=== PATIENT | male | born 1985 | race Caucasian/White ===

== ENCOUNTER 2017-09-08 06:25 | Inpatient (IN) | payer OTHER ==
[~2017-09-08] VITALS: Ht 188 cm; Wt 128.6 kg
[2017-09-08] MEDS ORDERED: KETOROLAC 15 MG INJ IV STA (06:49)
[2017-09-08] MEDS ORDERED: SOD CHLORIDE 0.9% 1,000 ML IV STA (06:49)
--- NOTE | 2017-09-08 06:52 | ERD ---
ER Documentation Chief Complaint Chief Complaint sob,cough,pain when coughing HPI 32-year-old man presents with cough, congestion, sore throat, and anterior chest wall pain 3 days. Pain is worse with coughing, he is also had some congestion and sore throat. He admits to using methamphetamine for the last few days including today. He denies fevers or chills, no calf or leg swelling, no vomiting or diarrhea, no headache or blurry vision. Patient denies exertional discomfort. ROS All systems reviewed and are negative except as per history of present illness. Medications Home Meds No Active Prescriptions or Reported Meds Allergies Allergies: Coded Allergies: No Known Drug Allergy (Verified Allergy, Mild, 09/08/17) PMhx/Soc Methamphetamine abuse History of Surgery: Yes (hip, gall bladder) Anesthesia Reaction: No Hx Neurological Disorder: No Hx Respiratory Disorders: No Hx Cardiac Disorders: No Hx Psychiatric Problems: No Hx Miscellaneous Medical Probl: No Hx Alcohol Use: Yes (ocassional) Hx Substance Use: Yes (mj) Hx Tobacco Use: Yes (10 STICKS PER DAY) FmHx Family History: No diabetes Physical Exam Vitals Vital Signs Date Time Temp Pulse Resp B/P Pulse Ox O2 Delivery O2 Flow Rate FiO2 09/08/17 09:38 2.0 09/08/17 09:38 80 18 95 Nasal Cannula 2.0 09/08/17 09:36 99.1 109 27 113/70 Nasal Cannula 2.0 09/08/17 08:00 102.1 09/08/17 07:10 Nasal Cannula 2 09/08/17 06:30 98.3 112 24 129/89 95 Physical Exam GENERAL: Well-developed, well-nourished, well-hydrated, in no apparent distress , looks nontoxic in appearance, afebrile HEENT: Moist mucous membranes, pink conjunctiva, no cervical spine tenderness or step-off deformities, no goiter, no jaundice or icterus, extraocular movements intact without pain. No submandibular induration, and no pharyngeal erythema NEURO: Alert and oriented 3, cranial nerves II through XII intact bilaterally, pupils equal round reactive to light, no focal deficits or facial asymmetry, sensation intact distally Strength 5/5 in upper and lower extremities bilaterally CARDIAC: Tachycardic and regular, no murmurs rubs or gallops LUNGS: Clear bilaterally no wheezing crackles or stridor ABDOMEN: Soft nontender, no guarding, no rigidity, no rebound, no psoas sign no obturator sign. Normoactive bowel sounds SKIN: Warm and dry to touch, no abrasions, contusions, or hematomas, no lacerations, no ecchymosis, no target lesions, and without ulcers EXTREMITIES: No clubbing cyanosis or edema, calves are bilaterally symmetrical, no Homans sign, no popliteal cord sign. Distal pulses equal and bilateral PSYCH: Normal affect without agitation or irritability Result Diagram: 09/08/17 0740 09/08/17 0740 Results 24 hrs Laboratory Tests Test 09/08/17 07:40 09/08/17 09:05 White Blood Count 27.810^3/ul Red Blood Count 4.3110^6/ul Hemoglobin 13.3g/dl Hematocrit 39.1% Mean Corpuscular Volume 90.7fl Mean Corpuscular Hemoglobin 30.9pg Mean Corpuscular Hemoglobin Concent 34.0g/dl Red Cell Distribution Width 12.6% Platelet Count 87172^3/UL Mean Platelet Volume 9.6fl Neutrophils % % Segmented Neutrophils % (Manual) 57% Band Neutrophils % (Manual) 33% Lymphocytes % % Lymphocytes % (Manual) 5% Monocytes % % Monocytes % (Manual) 3% Eosinophils % % Basophils % % Metamyelocytes % (manual) 2% Nucleated Red Blood Cells % 0.0/100WBC Neutrophils # 10^3/ul Neutrophils # (Manual) 18.410^3/ul Band Neutrophils # 9.110^3/ul Absolute Lymphocytes (Manual) 1.310^3/ul Lymphocytes # 10^3/ul Monocytes # 10^3/ul Absolute Monocytes (Manual) 0.810^3/ul Eosinophils # 10^3/ul Basophils # 10^3/ul Metamyelocytes # 0.510^3/ul Nucleated Red Blood Cells # 10^3/ul Pathologist Review (Hematology) Y Platelet Estimate NORMAL Sodium Level 141mmol/L Potassium Level 3.9mmol/L Chloride Level 104mmol/L Carbon Dioxide Level 27mmol/L Anion Gap 14 Blood Urea Nitrogen 15mg/dl Creatinine 0.80mg/dl Glucose Level 107mg/dl Calcium Level 9.1mg/dl Total Bilirubin 1.4mg/dl Direct Bilirubin 0.00mg/dl Indirect Bilirubin 1.4mg/dl Aspartate Amino Transf (AST/SGOT) 31IU/L Alanine Aminotransferase (ALT/SGPT) 38IU/L Alkaline Phosphatase 75IU/L Troponin I 0.034ng/ml Total Protein 7.1g/dl Albumin 3.4g/dl Globulin 3.70g/dl Albumin/Globulin Ratio 0.91 Lipase 39U/L Lactic Acid Level 1.3mmol/L B-Type Natriuretic Peptide 1560PG/ML Current Medications Medications (Trade) Dose Ordered Sig/Pieter Route PRN Reason Start Time Stop Time Status Last Admin Dose Admin Sodium Chloride (NS) 1,000 ml @ 1,000 mls/hr Q1H STAT IV 09/08/17 06:49 09/08/17 07:48 DC 09/08/17 07:53 Ketorolac Tromethamine (Toradol) 15 mg ONCE STAT IV 09/08/17 06:49 09/08/17 06:50 DC 09/08/17 07:54 Lorazepam 0.5 mg 0.5 mg ONCE ONCE PO 09/08/17 07:00 09/08/17 07:01 DC 09/08/17 07:54 Ceftriaxone Sodium 50 ml @ 100 mls/hr ONCE ONCE IVPB 09/08/17 08:00 09/08/17 08:29 DC 09/08/17 09:05 Azithromycin (Zithromax 500mg/ NS (Pmx)) 250 ml @ 250 mls/hr ONCE ONCE IVPB 09/08/17 08:00 09/08/17 08:59 DC 09/08/17 10:15 Sodium Chloride 3000 ml 3,000 ml BOLUS OVER 2 HOURS STAT IV* 09/08/17 09:27 09/08/17 09:30 DC 09/08/17 10:16 Vancomycin HCl (Vancocin) 250 ml @ 125 mls/hr ONCE ONCE IVPB 09/08/17 09:30 09/08/17 11:29 DC 09/08/17 11:40 Albuterol (Proventil 0.083% (Neb)) 10 mg ONCE STAT HHN 09/08/17 09:27 09/08/17 09:30 DC 09/08/17 09:38 Procedures/MDM IV line was established patient was placed on nurse monitoring rhythm strip revealed a sinus tachycardia at 120 bpm with upright P and T waves. Patient was afebrile EKG performed, read by me revealed a sinus tachycardia at 119 bpm, normal axis, narrow QRS complex, no concerning ST elevations or depressions noted. One view chest x-ray performed, read by me there is a right lower lobe infiltrate and congestion bilaterally with atelectasis, no pneumothorax, no air under the diaphragm. I administered 1 L normal saline intravenously, Toradol 15 mg IV for pain control, lorazepam 0.5 mg p.o. for methamphetamine intoxication and tachycardia , as well as ceftriaxone 1 g IV and azithromycin 500 mg IV for right-sided pneumonia. I also administered vancomycin 1 g IV. CBC reveals a leukocytosis at 28, electrolytes are normal, liver function tests normal, troponin negative. BNP elevated at 1560, lactic acid level low. I suspect patient has a component of cardiac decompensation secondary to methamphetamines Influenza AB swabs were negative. Patient's tachycardia resolved. I was later informed that the patient has a fever of 102F while here in the ED. Patient's initial temperature was normal at 98.3F. Given his x-ray findings, severe leukocytosis, 102F fever I suspect sepsis secondary to pneumonia. I ordered blood cultures and lactic acid level. I also ordered increased IV fluid hydration for a total of about 30 cc/kg. Patient's infectious symptoms have not stabilized and the patient is at risk of rapid decompensation. The patient will be admitted for careful hydration, antibiotic therapy, and infectious source control. I added vancomycin 1 g IV to the patient's antibiotics and also administered albuterol 10 mg via nebulizer. Patient defervesced Severe Sepsis Assessment: Infectious Source: Pneumonia Severe Sepsis Managment: Blood Cultures X 2 before broad spectrum antibiotics initiated within 3 hours of recognition. 30 ml/kg NS bolus Completed Initial Lactate: Normal Repeat Lactate not indicated as initial < 2.0 Critical Care: Time: 45 minutes Treatments/Evaluations: Emergent fluid management, while maintaining close respiratory support. Immediate broad spectrum antibiotic therapy. Simultaneous assessment for possible sources in order to direct therapy. Consideration for invasive and chemical support to prevent respiratory or cardiac collapse. Septic Shock Assessment (1 hour post 30 ml/kg fluid bolus): Hypotension (SBP < 90 or 40 mmHg drop, MAP < 65): No Lactic acid > 4.0 No Perfusion Reassessment for Septic Shock: Temp 99F, pulse 90 bpm, respiratory rate 18 breaths per minute, blood pressure 120/80 Heart Exam: Regular rate rhythm Lung Exam: Crackles on the right side Capillary Refill: Less than 2 seconds Peripheral Pulses: Radially present Skin: [place] and dry Hypotensive Treatment (not required for isolated lactic acid elevation): Comfort Care: No Central LIne: Not indicated Vasopressor started: Not indicated I considered further perfusion assessment with CVP measurement, SCVO2, bedside ultrasound volume assessment, passive leg raise, trial of further fluid bolus. And preceded with aggressive IV hydration, broad-spectrum IV antibiotics, and bronchodilator therapy Accepting Care Team: Current data and ongoing care discussed. Time: Time of admission Primary Provider: Hospitalist Consulting: Infectious disease Outstanding Data: none Departure Diagnosis: Primary Impression: Pneumonia Pneumonia type: due to unspecified organism Laterality: right Lung location : middle lobe of lung Qualified Code: J18.1 - Pneumonia of right middle lobe due to infectious organism Additional Impressions: Methamphetamine abuse Sepsis Sepsis type: sepsis due to unspecified organism Qualified Code: A41.9 - Sepsis, due to unspecified organism Heart failure Heart failure type: systolic Heart failure chronicity: acute Qualified Code : I50.21 - Acute systolic heart failure Condition: MICA Cain MD Sep 08, 2017 06:52
[2017-09-08] MEDS ORDERED: LORAZEPAM 0.5 MG TAB PO ONE (07:00)
--- NOTE | 2017-09-08 07:37 | RADRPT ---
PROCEDURE: XR Chest. CLINICAL INDICATION: , pain TECHNIQUE: A single AP view of the chest was obtained. COMPARISON: None available FINDINGS: Lung volumes are low with compressive changes and crowding of the central pulmonary vascular marking s with bibasilar interstitial opacities . No focal airspace opacity, pleural effusion or pneumothora x is seen. The cardiomediastinal silhouette is mildly enlarged. The osseous structures are unremar kable. IMPRESSION: 1. Prominent pulmonary vascular markings, at least partially related to low lung volumes. 2. Mild cardiomegaly. RPTAT: HH .Vi Moreno MD, MD Date Time Electronically viewed and signed by .Vi Moreno MD, on 09/08/2017 07:37 .G/
[2017-09-08] MEDS ORDERED: AZITHROMYCIN 500MG/NS (PMX) 250 ML IVPB ONE (08:00)
[2017-09-08] MEDS ORDERED: CEFTRIAXONE 1 GM/50 ML (PMX) 50 ML IVPB ONE (08:00)
[2017-09-08 08:12] LABS: ABNORMAL IP MESSAGE 1; HEMATOCRIT 39.1 % (42.0-52.0); HEMOGLOBIN 13.3 g/dl (14.0-18.0); MEAN CORPUSCULAR HEMOGLOBIN 30.9 pg (29.0-33.0); MEAN CORPUSCULAR VOLUME 90.7 fl (82.0-101.0); MEAN PLATELET VOLUME 9.6 fl (7.4-10.4); PLATELET COUNT 307 10^3/UL (140-415); POSITIVE DIFF @See below; RED BLOOD COUNT 4.31 10^6/ul (4.70-6.10); RED CELL DISTRIBUTION WIDTH 12.6 % (11.5-14.5); WHITE BLOOD COUNT 27.8 10^3/ul (4.8-10.8)
[2017-09-08 08:37] LABS: ALBUMIN 3.4 g/dl (3.3-4.9); ALBUMIN/GLOBULIN RATIO 0.91; BILIRUBIN,INDIRECT 1.4 mg/dl (0-1.1); BILIRUBIN,TOTAL 1.4 mg/dl (0.2-1.3); CALCIUM 9.1 mg/dl (8.4-10.2); CREATININE 0.8 mg/dl (0.61-1.24); POTASSIUM 3.9 mmol/L (3.5-5.1); TOTAL PROTEIN 7.1 g/dl (6.1-8.1)
[2017-09-08 08:47] LABS: TROPONIN-I 0.034 ng/ml (0.00-0.12)
[2017-09-08] MEDS ORDERED: SODIUM CHLORIDE 0.9% 1L BAG IV* STA (09:27)
[2017-09-08] MEDS ORDERED: ALBUTEROL 0.083% (NEB) 2.5 MG/3 ML AMP HHN STA (09:27)
[2017-09-08] MEDS ORDERED: VANCOMYCIN 1 GM (PMX) 250 ML IVPB ONE (09:30)
[2017-09-08 09:43] LABS: METAMYELOCYTES %M 2 % (0-0); MONOCYTES % (M) 3 % (0-11); PLATELET ESTIMATE NORMAL
[2017-09-08 12:49] VITALS: TEMP 98.4
--- NOTE | 2017-09-08 13:56 | HP ---
Date/Time of Note Date/Time of Note DATE: 09/08/17 TIME: 13:50 Assessment/Plan VTE Prophylaxis VTE Prophylaxis Intervention: ambulation Assessment/Plan Chief Complaint/Hosp Course 32-year-old male, came in for evaluation of 3 day duration of cough, subjective fevers, sore throat and left-sided chest wall pain with coughing. 1. Sepsis with pneumonia, possibly community-acquired. Status: Acute -Admit as inpatient. -We will start patient on IV fluids, IV ceftriaxone plus IV Zithromax. -We will also give cough suppressants, DuoNeb nebulization. -Follow-up cultures. 2. Pleuritic chest pain secondary to coughing. This is very unlikely cardiac in etiology. Status: Acute -We will obtain a serial troponin and 2D echocardiogram. -Motrin for pain control. 3. Meth abuse. 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 -Cessation advised. 3. Obesity with BMI 37.7 -Weight reduction advised. We will also obtain a lipid panel and A1c. DVT prophylaxis: Ambulation/SCDs. Rest of the management depend on hospital course. Patient was seen in collaboration with Approximately 60 minutes was spent on this history and physical. Problems: HPI/ROS Admit Date/Time Admit Date/Time Sep 08, 2017 at 09:56 Hx of Present Illness This is a 32-year-old male with a medical history of current meth abuse, presented to the emergency room for 3 day duration of cough, sore throat, left chest wall pain with coughing and subjective fevers. Patient denied any palpitation, shortness of breath, nausea, vomiting, abdominal pain, upper or lower GI bleed episodes, dizziness, lightheadedness or other constitutional symptoms. In the emergency room, patient was noted with elevated WBC 27,800 with a temperature of 102.1. Chest x-ray showed prominent pulmonary vascular markings with low lung volumes. BNP 1560. Patient had EKG negative for cardiac ischemia with a negative troponin. Patient was given IV ceftriaxone, azithromycin, Toradol and IV fluids in the emergency room and was admitted. ROS A 12 point review of system was assessed and is negative other than what is mentioned in HPI. PMH/Family/Social Past Medical History See HPI Past Surgical History See HPI Social History Current everyday meth abuse. Denied alcohol or nicotine abuse. Smoking Status: Current every day smoker Exam/Review of Systems Vital Signs Vitals Vital Signs Date Time Temp Pulse Resp B/P Pulse Ox O2 Delivery O2 Flow Rate FiO2 09/08/17 12:49 98.4 113 24 110/50 98 Nasal Cannula 09/08/17 11:26 2.0 Exam Exam General: Well developed,adequately built, not in any acute distress . HEENT: Normocephalic, Atraumatic, No laceration or hematoma; Eyes: PEERL, Conjunctiva clear, Anicteric sclera Neck: Supple without any lymphadenopathy, nontender, no JVD, no carotid bruits, trachea midline, no thyromegaly Cardiac: S1, S2 auscultated, regular rhythm and rate, no mumurs or gallop Pulmonary: Normal respiratory effort. Chest clear to auscultation bilaterally, no adventitious breath sounds GI: Abdomen normal to inspection. Soft, non tender, non- distended, no masses, no rebound tenderness or guarding. Bowel sounds active on all four quadrants Genitourinary: Deferred Extremities: No cyanosis, clubbing, or edema. Pulses [2+] bilaterally. Full ROM on all four extremities. No focal weakness appreciated. Neurologic: Alert to person, place, time, and situation. Affect appropriate, intact sensation. Skin: Clean,dry, and intact. No ecchymosis, no rashes, or lesions Labs Result Diagram: 09/08/17 0740 09/08/17 0740 Medications Medications Current Medications Ceftriaxone Sodium 50 ml @ 100 mls/hr Q24H IVPB ; Start 09/08/17 at 14:00 Azithromycin 250 ml @ 250 mls/hr Q24H IVPB ; Start 09/08/17 at 14:00 Sodium Chloride (NS) 1,000 ml @ 75 mls/hr [id number] IV ; Start 09/08/17 at 13:34 Ondansetron HCl (Zofran Inj) 4 mg Q6H PRN IV NAUSEA AND/OR VOMITING; Start at 14:00 Acetaminophen (Tylenol Tab) 650 mg Q6H PRN PO PAIN LEVEL 1-3 OR FEVER; Start 09/08/17 at 14:00 Ibuprofen (Motrin) 600 mg Q6H PRN PO pain; Start 09/08/17 at 14:00 Guaifenesin/ Dextromethorphan (Robitussin Dm Liquid Cup) 10 ml Q4H PO ; Start 09/08/17 at 14:00 Benzonatate (Tessalon) 100 mg TID PO ; Start 09/08/17 at 21:00 MADELYN BRYAN NP Sep 08, 2017 13:56
[2017-09-08] MEDS ORDERED: ALBUTEROL/IPRATROPIUM (NEB) 3 ML AMP HHN PRN (14:00)
[2017-09-08] MEDS ORDERED: ACETAMINOPHEN 325 MG TAB PO PRN (14:00)
[2017-09-08] MEDS ORDERED: ONDANSETRON 4 MG INJ IV PRN (14:00)
[2017-09-08] MEDS: CEFTRIAXONE 1 GM/50 ML (PMX) 50 ML IVPB SCH (14:00)
[2017-09-08] MEDS ORDERED: NACL 0.9% 3 ML SYG IV SCH (14:00)
[2017-09-08] MEDS ORDERED: IBUPROFEN 600 MG TAB PO PRN (14:00)
[2017-09-08 14:07] VITALS: Ht 188 cm; Wt 128.6 kg
[2017-09-08 14:13] VITALS: BP 98/53; PULSE 118; RESP 18
[2017-09-08] MEDS: AZITHROMYCIN 500MG/NS (PMX) 250 ML IVPB SCH (14:31)
[2017-09-08] MEDS: SOD CHLORIDE 0.9% 1,000 ML IV SCH (14:32)
[2017-09-08 15:17] LABS: PATH REVIEW CH
[2017-09-08] MEDS: GUAIFENESIN/DM 5ML CUP PO SCH ×3 (15:56→21:54)
[2017-09-08 16:00] VITALS: PULSE 120
[2017-09-08 16:55] LABS: TROPONIN-I 0.025 ng/ml (0.00-0.12)
[2017-09-08 16:58] LABS: CK-MB 1.15 ng/ml (0.0-2.4)
[2017-09-08] MEDS: ALBUTEROL/IPRATROPIUM (NEB) 3 ML AMP HHN SCH ×2 (17:00→20:43)
[2017-09-08 19:15] VITALS: BP 109/57; PULSE 116; RESP 18
[2017-09-08 20:00] VITALS: PULSE 127
[2017-09-08] MEDS: BENZONATATE 100 MG CAP PO SCH (21:54)
[2017-09-08 22:43] LABS: TROPONIN-I 0.04 ng/ml (0.00-0.12)
[2017-09-08 22:48] LABS: CK-MB 1.14 ng/ml (0.0-2.4)
[2017-09-09] VITALS (10 sets, daily range): BP systolic 99–144; BP diastolic 56–88; PULSE 108–145; RESP 18–20
[2017-09-09] MEDS: ALBUTEROL/IPRATROPIUM (NEB) 3 ML AMP HHN SCH ×6 (00:34→21:00)
[2017-09-09] MEDS: GUAIFENESIN/DM 5ML CUP PO SCH ×6 (02:00→22:00)
[2017-09-09] MEDS: SOD CHLORIDE 0.9% 1,000 ML IV SCH ×2 (02:10→21:30)
[2017-09-09 06:28] LABS: BASOPHILS % 0.2 % (0.0-2.0); EOSINOPHILS # 0.1 10^3/ul (0.0-0.5); EOSINOPHILS % 0.8 % (0.0-7.0); HEMATOCRIT 36.6 % (42.0-52.0); HEMOGLOBIN 12.3 g/dl (14.0-18.0); LYMPHOCYTES # 1.6 10^3/ul (0.8-2.9); LYMPHOCYTES % 8.9 % (15.0-51.0); MEAN CORPUSCULAR HEMOGLOBIN 31.1 pg (29.0-33.0); MEAN CORPUSCULAR HGB CONC 33.6 g/dl (32.0-37.0); MEAN CORPUSCULAR VOLUME 92.4 fl (82.0-101.0); MEAN PLATELET VOLUME 9.8 fl (7.4-10.4); MONOCYTE # 0.8 10^3/ul (0.3-0.9); MONOCYTES % 4.2 % (0.0-11.0); NEUTROPHIL # 15.7 10^3/ul (1.6-7.5); NEUTROPHILS % 85.4 % (39.0-77.0); PLATELET COUNT 250 10^3/UL (140-415); RED BLOOD COUNT 3.96 10^6/ul (4.70-6.10); RED CELL DISTRIBUTION WIDTH 12.8 % (11.5-14.5); WHITE BLOOD COUNT 18.4 10^3/ul (4.8-10.8)
[2017-09-09 06:55] LABS: ALBUMIN 2.9 g/dl (3.3-4.9); ALBUMIN/GLOBULIN RATIO 0.85; BILIRUBIN,INDIRECT 0.8 mg/dl (0-1.1); BILIRUBIN,TOTAL 0.8 mg/dl (0.2-1.3); CALCIUM 8.3 mg/dl (8.4-10.2); CHOL/HDL RATIO 3.1 RATIO; CREATININE 0.82 mg/dl (0.61-1.24); MAGNESIUM 1.6 mg/dl (1.7-2.5); PHOSPHORUS 2.2 mg/dl (2.5-4.9); POTASSIUM 3.6 mmol/L (3.5-5.1); TOTAL PROTEIN 6.3 g/dl (6.1-8.1)
[2017-09-09 07:24] LABS: THYROID STIMULATING HORMONE 0.446 MIU/L (0.465-4.680)
[2017-09-09] MEDS: BENZONATATE 100 MG CAP PO SCH ×3 (09:00→21:00)
--- NOTE | 2017-09-09 12:10 | PN ---
Date/Time of Note Date/Time of Note DATE: 09/09/17 TIME: 12:01 Assessment/Plan VTE Prophylaxis VTE Prophylaxis Intervention: ambulation Lines/Catheters IV Catheter Type (from Rust): Saline Lock Urinary Cath still in place: No Assessment/Plan Chief Complaint/Hosp Course 32-year-old male, came in for evaluation of 3 day duration of cough, subjective fevers, sore throat and left-sided chest wall pain with coughing. 1. Sepsis with pneumonia, possibly community-acquired. Status: Acute. Comment: Improving -Continue IV ceftriaxone plus IV Zithromax. -Continue cough suppressants, DuoNeb nebulization. -Follow-up cultures. 2. Pleuritic chest pain secondary to coughing. This is very unlikely cardiac in etiology. Status: Acute. Comment: Resolved. -Ruled out ACS with 3 series trops -Continue Motrin for pain control. 3. Meth abuse. Status: Chronic. Comment: Now in withdrawal -Start Ativan PRN for agitation. 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 -Cessation advised. 3. Obesity with BMI 37.7 -Weight reduction advised. We will also obtain a lipid panel and A1c. DVT prophylaxis: Ambulation/SCDs. Patient was seen in collaboration with Approximately 60 minutes was spent on this history and physical. Problems: Subjective 24 Hr Interval Summary Free Text/Dictation Patient is anxious, diaphoretic. Exam/Review of Systems Vital Signs Vitals Vital Signs Date Time Temp Pulse Resp B/P Pulse Ox O2 Delivery O2 Flow Rate FiO2 09/09/17 08:30 97.0 115 20 144/88 99 Room Air Nasal Cannula 09/09/17 00:34 3.0 Intake and Output 09/08/17 09/08/17 09/09/17 15:00 23:00 07:00 Intake Total 3300 ml Balance 3300 ml Exam General: Well developed,adequately built, not in any acute distress . HEENT: Normocephalic, Atraumatic, No laceration or hematoma; Eyes: PEERL, Conjunctiva clear, Anicteric sclera Neck: Supple without any lymphadenopathy, nontender, no JVD, no carotid bruits, trachea midline, no thyromegaly Cardiac: S1, S2 auscultated, regular rhythm and rate, no mumurs or gallop Pulmonary: Normal respiratory effort. Chest clear to auscultation bilaterally, no adventitious breath sounds GI: Abdomen normal to inspection. Soft, non tender, non- distended, no masses, no rebound tenderness or guarding. Bowel sounds active on all four quadrants Genitourinary: Deferred Extremities: No cyanosis, clubbing, or edema. Pulses [2+] bilaterally. Full ROM on all four extremities. No focal weakness appreciated. Neurologic: Anxious/diaphoretic/stating am withdrawing. Alert to person, place, time, and situation. Affe Skin: Clean,dry, and intact. No ecchymosis, no rashes, or lesions Results Result Diagram: 09/09/17 0600 09/09/17 0600 Results 24 hrs Laboratory Tests Test 09/08/17 14:00 09/08/17 15:30 09/08/17 21:48 09/09/17 06:00 Lactic Acid Level 1.6 1.8 Creatine Kinase 145 129 Creatine Kinase Index 0.8 0.9 Creatinine Kinase MB (Mass) 1.15 1.14 Troponin I 0.025 0.040 White Blood Count 18.4 #H Red Blood Count 3.96 L Hemoglobin 12.3 L Hematocrit 36.6 L Mean Corpuscular Volume 92.4 Mean Corpuscular Hemoglobin 31.1 Mean Corpuscular Hemoglobin Concent 33.6 Red Cell Distribution Width 12.8 Platelet Count 250 Mean Platelet Volume 9.8 Neutrophils % 85.4 H Lymphocytes % 8.9 L Monocytes % 4.2 Eosinophils % 0.8 Basophils % 0.2 Nucleated Red Blood Cells % 0.0 Neutrophils # 15.7 H Lymphocytes # 1.6 Monocytes # 0.8 Eosinophils # 0.1 Basophils # 0.0 Nucleated Red Blood Cells # 0.0 Sodium Level 139 Potassium Level 3.6 Chloride Level 106 Carbon Dioxide Level 27 Anion Gap 10 Blood Urea Nitrogen 13 Creatinine 0.82 Glucose Level 93 Hemoglobin A1c 5.4 Calcium Level 8.3 L Phosphorus Level 2.2 L Magnesium Level 1.6 L Total Bilirubin 0.8 Direct Bilirubin 0.00 Indirect Bilirubin 0.8 Aspartate Amino Transf (AST/SGOT) 28 Alanine Aminotransferase (ALT/SGPT) 33 Alkaline Phosphatase 82 Total Protein 6.3 Albumin 2.9 L Globulin 3.40 H Albumin/Globulin Ratio 0.85 Triglycerides Level 42 Cholesterol Level 122 LDL Cholesterol, Calculated 75 HDL Cholesterol 39 Cholesterol/HDL Ratio 3.1 Thyroid Stimulating Hormone (TSH) 0.446 L Medications Medications Current Medications Ceftriaxone Sodium 50 ml @ 100 mls/hr Q24H IVPB Last administered on 14:00; Admin Dose 100 MLS/HR; Start 09/08/17 at 14:00 Azithromycin 250 ml @ 250 mls/hr Q24H IVPB Last administered on 09/08/17 14: 31; Admin Dose 250 MLS/HR; Start 09/08/17 at 14:00 Sodium Chloride (NS) 1,000 ml @ 75 mls/hr [id number] IV Last administered on 02:10; Admin Dose 75 MLS/HR; Start 09/08/17 at 13:34 Ondansetron HCl (Zofran Inj) 4 mg Q6H PRN IV NAUSEA AND/OR VOMITING; Start at 14:00 Acetaminophen (Tylenol Tab) 650 mg Q6H PRN PO PAIN LEVEL 1-3 OR FEVER; Start 09/08/17 at 14:00 Ibuprofen (Motrin) 600 mg Q6H PRN PO pain; Start 09/08/17 at 14:00 Guaifenesin/ Dextromethorphan (Robitussin Dm Liquid Cup) 10 ml Q4H PO Last administered on 09/08/17 21:54; Admin Dose 10 ML; Start 09/08/17 at 14:00 Benzonatate (Tessalon) 100 mg TID PO Last administered on 09/08/17 21:54; Admin Dose 100 MG; Start 09/08/17 at 21:00 MADELYN BRYAN NP Sep 09, 2017 12:09
[2017-09-09] MEDS ORDERED: CHLORDIAZEPOXIDE 25 MG CAP PO SCH (13:00)
[2017-09-09] MEDS: LORAZEPAM 2 MG INJ IV PRN (14:14)
[2017-09-09] MEDS: CEFTRIAXONE 1 GM/50 ML (PMX) 50 ML IVPB SCH (14:14)
[2017-09-09] MEDS: AZITHROMYCIN 500MG/NS (PMX) 250 ML IVPB SCH (14:15)
--- NOTE | 2017-09-09 18:45 | RADRPT ---
Echocardiogram Report Patient Name: SALOMON BLOOM Gender: Male Date: 1985 Study Date: 08-Sep-2017 [employer] Supervisor: Michael Santillan [facility] Location: [id number]-A Ref. Physician: MADELYN BRYAN Quality: Adequate Procedures: Transthoracic echocardiogram with complete 2D, M-Mode, and doppler examination. Indications: Chest Pain. 2D/M Mode Doppler Measurement Value Normal Ranges Measurement Value Normal Ranges LVIDd 2D 6.8 3.5 - 5.6 cm AV Peak Jonnathan 1.1 m/sec LVIDs 2D 5.9 2.1 - 4.1 cm AV Peak PG 5.0 mmHg FS 2D 13.0 % LVOT Peak Jonnathan 1.1 m/sec LVPWd 2D 1.3 0.6 - 1.1 cm LVOT Peak PG 5.0 mmHg IVSd 2D 1.3 0.6 - 1.1 cm MV E Peak Jonnathan 1.7 m/sec IVS/LVPW 2D 1.0 TR Peak Jonnathan 2.5 m/sec AoR Diam 2D 3.4 2.0 - 3.7 cm TR Peak PG 25.0 mmHg LA/Ao 2D 1 0 - 1 RVSP 40.0 mmHg EDV 2D 312.0 cm3 ESV 2D 205.0 cm3 LA Dimen 2D 3.9 2.3 - 4.0 cm Findings Left Ventricle: Mild concentric left ventricular hypertrophy. Moderate enlargement of left ventricle cavity. Severe global left ventricular systolic dysfunction. Ejection fraction is visually estimated at 25 %. Abnormal Diastolic Function. Right Ventricle: Normal right ventricular size. Normal right ventricular systolic function. Left Atrium: The left atrium is normal in size. Right Atrium: The right atrium is normal in size. Mitral Valve: Mild mitral leaflet calcification. Mild mitral annular calcification. Mild mitral valve regurgitation. Aortic Valve: Normal appearance of the aortic valve. No significant aortic stenosis or insufficiency. Tricuspid Valve: Tricuspid valve not well visualized. Estimated peak PA systolic pressure 40 mmHg. There is mild tricuspid regurgitation. Pulmonic Valve: Pulmonic valve not well visualized. There is mild pulmonic regurgitation. Pericardium: Normal pericardium with no significant pericardial effusion. Aorta: Normal aortic root. IVC: Dilated IVC without respiratory collapse consistent with elevated right atrial pressure. Conclusions 1.Mild concentric left ventricular hypertrophy. Moderate enlargement of left ventricle cavity. Severe global left ventricular systolic dysfunction. Ejection fraction is visually estimated at 25 %. Abnormal Diastolic Function. 2.Normal right ventricular size. Normal right ventricular systolic function. 3.The left atrium is normal in size. 4.The right atrium is normal in size. 5.Mild mitral valve regurgitation. 6.No significant aortic stenosis or insufficiency. 7.Estimated peak PA systolic pressure 40 mmHg. There is mild tricuspid regurgitation. 8.Normal pericardium with no significant pericardial effusion. Electronically Signed By: Mike Snell 09-Sep-2017 18:44:04 -0800 Patient Name: SALOMON BLOOM Study Date: 08-Sep-[id number]
--- NOTE | 2017-09-09 19:51 | CONS ---
Date/Time of Note Date/Time of Note DATE: 09/09/17 TIME: 19:46 Assessment/Plan Assessment/Plan Additional Assessment/Plan Sepsis Acute decompensated systolic congestive heart failure Severe cardiomyopathy with ejection fraction 25% Methamphetamine use -Patient with echocardiogram with severe LV systolic dysfunction with ejection fraction of 25%. Patient currently be treating for respiratory infection. Would start gentle IV diuretics, beta-yesica as heart rate and blood pressure permits, DONNY inhibitor as blood pressure and renal function permits. Supplement potassium to maintain above 4.0 and magnesium above 2.0. Continue telemetry monitoring. Of importance is methamphetamine cessation. Consultation Date/Type/Reason Admit Date/Time Sep 08, 2017 at 09:56 Type of Consultation: cv Reason for Consultation Abnormal echocardiogram Hx of Present Illness This is a 32-year-old male with known known past medical history except for methamphetamine use for the past 15 years who presents with sweating, chills and cough over the past 3-4 days and body aches. Patient admitted with presumed infection and put on antibiotics with progressive improvement in symptoms. He complains of body aches in his chest and back. He also complains of shortness of breath and cough. He denies any abdominal pain. 12 point review of systems was performed with all pertinent positives and negatives mentioned above and all else is negative Past Medical History Medical History: no pertinent history Past Surgical History Past Surgical Hx: no surgical history Family History Significant Family History: no pertinent family hx Social History Alcohol Use: occasionally Smoking Status: Current every day smoker Drug Use: other (Methamphetamine use for the past 15 years) Other Social History Works of a [employer] Exam/Review of Systems Vital Signs Vitals Vital Signs Date Time Temp Pulse Resp B/P Pulse Ox O2 Delivery O2 Flow Rate FiO2 09/09/17 16:00 124 09/09/17 15:54 3.0 09/09/17 08:30 97.0 20 144/88 99 Room Air Nasal Cannula Intake and Output 09/08/17 09/08/17 09/09/17 15:00 23:00 07:00 Intake Total 3300 ml Balance 3300 ml Exam Awake, following commands, becomes agitated easily, moving around the bed Constitutional: obese Head: normocephalic Respiratory: other (Coarse breath sounds bilaterally, no wheezing) Cardiovascular: other (S1-S2 heard), regular rate and rhythm Gastrointestinal: bowel sounds, non-tender, soft Extremities: edema (Trace) Results Result Diagram: 09/09/17 0600 09/09/17 0600 Results 24 hrs Laboratory Tests Test 09/08/17 21:48 09/09/17 06:00 Creatine Kinase 129 Creatine Kinase Index 0.9 Creatinine Kinase MB (Mass) 1.14 Troponin I 0.040 White Blood Count 18.4 #H Red Blood Count 3.96 L Hemoglobin 12.3 L Hematocrit 36.6 L Mean Corpuscular Volume 92.4 Mean Corpuscular Hemoglobin 31.1 Mean Corpuscular Hemoglobin Concent 33.6 Red Cell Distribution Width 12.8 Platelet Count 250 Mean Platelet Volume 9.8 Neutrophils % 85.4 H Lymphocytes % 8.9 L Monocytes % 4.2 Eosinophils % 0.8 Basophils % 0.2 Nucleated Red Blood Cells % 0.0 Neutrophils # 15.7 H Lymphocytes # 1.6 Monocytes # 0.8 Eosinophils # 0.1 Basophils # 0.0 Nucleated Red Blood Cells # 0.0 Sodium Level 139 Potassium Level 3.6 Chloride Level 106 Carbon Dioxide Level 27 Anion Gap 10 Blood Urea Nitrogen 13 Creatinine 0.82 Glucose Level 93 Hemoglobin A1c 5.4 Calcium Level 8.3 L Phosphorus Level 2.2 L Magnesium Level 1.6 L Total Bilirubin 0.8 Direct Bilirubin 0.00 Indirect Bilirubin 0.8 Aspartate Amino Transf (AST/SGOT) 28 Alanine Aminotransferase (ALT/SGPT) 33 Alkaline Phosphatase 82 Total Protein 6.3 Albumin 2.9 L Globulin 3.40 H Albumin/Globulin Ratio 0.85 Triglycerides Level 42 Cholesterol Level 122 LDL Cholesterol, Calculated 75 HDL Cholesterol 39 Cholesterol/HDL Ratio 3.1 Thyroid Stimulating Hormone (TSH) 0.446 L Medications Medications Current Medications Ceftriaxone Sodium 50 ml @ 100 mls/hr Q24H IVPB Last administered on 14:14; Admin Dose 100 MLS/HR; Start 09/08/17 at 14:00 Azithromycin 250 ml @ 250 mls/hr Q24H IVPB Last administered on 09/09/17 14: 15; Admin Dose 250 MLS/HR; Start 09/08/17 at 14:00 Sodium Chloride (NS) 1,000 ml @ 75 mls/hr [id number] IV Last administered on 02:10; Admin Dose 75 MLS/HR; Start 09/08/17 at 13:34 Ondansetron HCl (Zofran Inj) 4 mg Q6H PRN IV NAUSEA AND/OR VOMITING; Start at 14:00 Acetaminophen (Tylenol Tab) 650 mg Q6H PRN PO PAIN LEVEL 1-3 OR FEVER; Start 09/08/17 at 14:00 Ibuprofen (Motrin) 600 mg Q6H PRN PO pain; Start 09/08/17 at 14:00 Guaifenesin/ Dextromethorphan (Robitussin Dm Liquid Cup) 10 ml Q4H PO Last administered on 09/08/17 21:54; Admin Dose 10 ML; Start 09/08/17 at 14:00 Benzonatate (Tessalon) 100 mg TID PO Last administered on 09/08/17 21:54; Admin Dose 100 MG; Start 09/08/17 at 21:00 Lorazepam (Ativan) 1 mg Q4H PRN IV agitation Last administered on 09/09/17 14 :14; Admin Dose 1 MG; Start 09/09/17 at 12:00 Procedures Procedures ECG done yesterday with sinus tachycardia at 119 bpm, QRS 84 ms, nonspecific T- wave abnormalities Mike Snell DO Sep 09, 2017 19:51
[2017-09-09] MEDS ORDERED: FUROSEMIDE 20 MG INJ IV ONE (20:00)
[2017-09-09] MEDS ORDERED: POTASSIUM CHLORIDE (SR) 20 MEQ TAB PO SCH (20:00)
[2017-09-09] MEDS ORDERED: MAGNESIUM SULFATE 2 GM/50 ML 50 ML IVPB ONE (21:00)
[2017-09-10] VITALS (12 sets, daily range): BP systolic 117–145; BP diastolic 59–77; PULSE 75–135; RESP 16–20
[2017-09-10] MEDS: ALBUTEROL/IPRATROPIUM (NEB) 3 ML AMP HHN SCH ×8 (01:00→21:48)
[2017-09-10] MEDS: GUAIFENESIN/DM 5ML CUP PO SCH ×7 (02:00→21:47)
[2017-09-10] MEDS: SOD CHLORIDE 0.9% 1,000 ML IV SCH (05:35)
[2017-09-10] MEDS ORDERED: FUROSEMIDE 20 MG INJ IV SCH (06:00)
[2017-09-10 06:33] LABS: BASOPHIL # 0.1 10^3/ul (0.0-0.1); BASOPHILS % 0.4 % (0.0-2.0); EOSINOPHILS # 0.3 10^3/ul (0.0-0.5); EOSINOPHILS % 2.1 % (0.0-7.0); HEMATOCRIT 38.6 % (42.0-52.0); HEMOGLOBIN 12.9 g/dl (14.0-18.0); LYMPHOCYTES # 1.5 10^3/ul (0.8-2.9); LYMPHOCYTES % 12.2 % (15.0-51.0); MEAN CORPUSCULAR HEMOGLOBIN 30.4 pg (29.0-33.0); MEAN CORPUSCULAR HGB CONC 33.4 g/dl (32.0-37.0); MEAN PLATELET VOLUME 10.2 fl (7.4-10.4); MONOCYTE # 0.6 10^3/ul (0.3-0.9); MONOCYTES % 5.1 % (0.0-11.0); NEUTROPHIL # 9.9 10^3/ul (1.6-7.5); NEUTROPHILS % 79.8 % (39.0-77.0); PLATELET COUNT 271 10^3/UL (140-415); RED BLOOD COUNT 4.24 10^6/ul (4.70-6.10); RED CELL DISTRIBUTION WIDTH 12.9 % (11.5-14.5); WHITE BLOOD COUNT 12.4 10^3/ul (4.8-10.8)
[2017-09-10 07:18] LABS: CALCIUM 8.4 mg/dl (8.4-10.2); CREATININE 0.84 mg/dl (0.61-1.24)
[2017-09-10] MEDS ORDERED: LISINOPRIL 5 MG TAB PO SCH (09:00)
[2017-09-10] MEDS: BENZONATATE 100 MG CAP PO SCH ×3 (10:24→21:30)
[2017-09-10] MEDS: ASPIRIN 81 MG TAB PO SCH (10:24)
[2017-09-10] MEDS: LORAZEPAM 2 MG INJ IV PRN (10:42)
--- NOTE | 2017-09-10 10:52 | PN ---
Date/Time of Note Date/Time of Note DATE: 09/10/17 TIME: 10:39 Assessment/Plan VTE Prophylaxis VTE Prophylaxis Intervention: ambulation Lines/Catheters IV [facility] ([facility] Saline Lock Urinary Cath still in place: No Assessment/Plan Chief Complaint/Hosp Course 32-year-old male, came in for evaluation of 3 day duration of cough, subjective fevers, sore throat and left-sided chest wall pain with coughing who was found with PNA/ CHF. 1. Sepsis with pneumonia, possibly community-acquired. Status: Acute. Comment: Resolving -Continue IV ceftriaxone plus IV Zithromax. -Continue cough suppressants, DuoNeb nebulization. -Follow-up cultures. 2. Systolic CHF. Status:Acute. Remarks: Euvolemic/ Clinically stable. -Expert care of (Cards) greatly appreciated. -On medical mgmt with diuretics/beta-yesica/ ACEi 3. Severe cardiomyopathy with ejection fraction 25% Status:Acute. -Treatment per #2 -Counselled on cessation of Methamphetamine abuse which is the foremost priority at this time. 4. Meth abuse. Status: Chronic. Comment: Severe addiction. -Ativan PRN for agitation. 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 Obesity with BMI 37.7 -Weight reduction advised. We will also obtain a lipid panel and A1c. DVT prophylaxis: Ambulation/SCDs. I had spent >30mins discussing patient with Echocardiographic findings with counselling on cessation of meth abuse and patient wanted to back off from meth and is willing to participate in any rehab programs available to him. SW to provide resources. Patient was seen in collaboration with Problems: Subjective 24 Hr Interval Summary Free Text/Dictation Overall doing well. NAD Eyes: pain (doing well. ) Exam/Review of Systems Vital Signs Vitals Vital Signs Date Time Temp Pulse Resp B/P Pulse Ox O2 Delivery O2 Flow Rate FiO2 09/10/17 08:01 102 09/10/17 04:00 18 124/72 94 Room Air 09/09/17 21:00 21 09/09/17 18:45 99.0 09/09/17 15:54 3.0 Exam General: Well developed,adequately built, not in any acute distress . HEENT: Normocephalic, Atraumatic, No laceration or hematoma; Eyes: PEERL, Conjunctiva clear, Anicteric sclera Neck: Supple without any lymphadenopathy, nontender, no JVD, no carotid bruits, trachea midline, no thyromegaly Cardiac: S1, S2 auscultated, regular rhythm and rate, no mumurs or gallop Pulmonary: Normal respiratory effort. Chest clear to auscultation bilaterally, no adventitious breath sounds GI: Abdomen normal to inspection. Soft, non tender, non- distended, no masses, no rebound tenderness or guarding. Bowel sounds active on all four quadrants Genitourinary: Deferred Extremities: No cyanosis, clubbing, or edema. Pulses [2+] bilaterally. Full ROM on all four extremities. No focal weakness appreciated. Neurologic:Alert to person, place, time, and situation. Skin: Clean,dry, and intact. No ecchymosis, no rashes, or lesions Results Result Diagram: 09/10/17 0543 09/10/17 0543 Results 24 hrs Laboratory Tests Test 09/10/17 05:43 White Blood Count 12.4 #H Red Blood Count 4.24 L Hemoglobin 12.9 L Hematocrit 38.6 L Mean Corpuscular Volume 91.0 Mean Corpuscular Hemoglobin 30.4 Mean Corpuscular Hemoglobin Concent 33.4 Red Cell Distribution Width 12.9 Platelet Count 271 Mean Platelet Volume 10.2 Neutrophils % 79.8 H Lymphocytes % 12.2 L Monocytes % 5.1 Eosinophils % 2.1 Basophils % 0.4 Nucleated Red Blood Cells % 0.0 Neutrophils # 9.9 H Lymphocytes # 1.5 Monocytes # 0.6 Eosinophils # 0.3 Basophils # 0.1 Nucleated Red Blood Cells # 0.0 Sodium Level 141 Potassium Level 4.0 Chloride Level 106 Carbon Dioxide Level 28 Anion Gap 11 Blood Urea Nitrogen 12 Creatinine 0.84 Glucose Level 99 Calcium Level 8.4 Magnesium Level 2.0 Medications Medications Current Medications Ceftriaxone Sodium 50 ml @ 100 mls/hr Q24H IVPB Last administered on 14:14; Admin Dose 100 MLS/HR; Start 09/08/17 at 14:00 Azithromycin 250 ml @ 250 mls/hr Q24H IVPB Last administered on 09/09/17 14: 15; Admin Dose 250 MLS/HR; Start 09/08/17 at 14:00 Sodium Chloride (NS) 1,000 ml @ 75 mls/hr [id number] IV Last administered on 05:35; Admin Dose 75 MLS/HR; Start 09/08/17 at 13:34 Ondansetron HCl (Zofran Inj) 4 mg Q6H PRN IV NAUSEA AND/OR VOMITING; Start at 14:00 Acetaminophen (Tylenol Tab) 650 mg Q6H PRN PO PAIN LEVEL 1-3 OR FEVER; Start 09/08/17 at 14:00 Ibuprofen (Motrin) 600 mg Q6H PRN PO pain; Start 09/08/17 at 14:00 Guaifenesin/ Dextromethorphan (Robitussin Dm Liquid Cup) 10 ml Q4H PO Last administered on 09/08/17 21:54; Admin Dose 10 ML; Start 09/08/17 at 14:00 Benzonatate (Tessalon) 100 mg TID PO Last administered on 09/08/17 21:54; Admin Dose 100 MG; Start 09/08/17 at 21:00 Lorazepam (Ativan) 1 mg Q4H PRN IV agitation Last administered on 09/09/17 14 :14; Admin Dose 1 MG; Start 09/09/17 at 12:00 Carvedilol (Coreg) 6.25 mg BID PO Last administered on 09/09/17 21:20; Admin Dose 6.25 MG; Start 09/09/17 at 21:00 Lisinopril (Zestril) 2.5 mg DAILY PO ; Start 09/10/17 at 09:00 Aspirin (Aspirin) 81 mg DAILY PO ; Start 09/10/17 at 09:00 MADELYN BRYAN NP Sep 10, 2017 10:52
--- NOTE | 2017-09-10 12:37 | CONS ---
Date/Time of Note Date/Time of Note DATE: 09/10/17 TIME: 12:36 Assessment/Plan Assessment/Plan Additional Assessment/Plan Sepsis Acute decompensated systolic congestive heart failure Severe cardiomyopathy with ejection fraction 25% Methamphetamine use -Patient with echocardiogram with severe LV systolic dysfunction with ejection fraction of 25%. Patient currently be treating for respiratory infection. We will increase IV diuretics, continue recently started beta-yesica as heart rate and blood pressure permits, DONNY inhibitor as blood pressure and renal function permits. Supplement potassium to maintain above 4.0 and magnesium above 2.0. Continue telemetry monitoring. Of importance is methamphetamine cessation. Consultation Date/Type/Reason Admit Date/Time Sep 08, 2017 at 09:56 Initial Consult Date Type of Consultation: cv 24 HR Interval Summary Free Text/Dictation Patient with slight improvement in shortness of breath. Denies chest pain Exam/Review of Systems Vital Signs Vitals Vital Signs Date Time Temp Pulse Resp B/P Pulse Ox O2 Delivery O2 Flow Rate FiO2 09/10/17 12:21 89 09/10/17 10:34 98.5 20 145/77 95 Room Air 09/09/17 21:00 21 09/09/17 15:54 3.0 Exam Sleeping but arousable, follows commands, no apparent distress Head: normocephalic Respiratory: other (Coarse breath sounds bilaterally with scattered rhonchi, no wheezing) Cardiovascular: other (S1-S2 heard), regular rate and rhythm Gastrointestinal: bowel sounds, non-tender, soft Extremities: edema Results Result Diagram: 09/10/17 0543 09/10/17 0543 Results 24 hrs Laboratory Tests Test 09/10/17 05:43 09/10/17 10:48 White Blood Count 12.4 #H Red Blood Count 4.24 L Hemoglobin 12.9 L Hematocrit 38.6 L Mean Corpuscular Volume 91.0 Mean Corpuscular Hemoglobin 30.4 Mean Corpuscular Hemoglobin Concent 33.4 Red Cell Distribution Width 12.9 Platelet Count 271 Mean Platelet Volume 10.2 Neutrophils % 79.8 H Lymphocytes % 12.2 L Monocytes % 5.1 Eosinophils % 2.1 Basophils % 0.4 Nucleated Red Blood Cells % 0.0 Neutrophils # 9.9 H Lymphocytes # 1.5 Monocytes # 0.6 Eosinophils # 0.3 Basophils # 0.1 Nucleated Red Blood Cells # 0.0 Sodium Level 141 Potassium Level 4.0 Chloride Level 106 Carbon Dioxide Level 28 Anion Gap 11 Blood Urea Nitrogen 12 Creatinine 0.84 Glucose Level 99 Calcium Level 8.4 Magnesium Level 2.0 Free Thyroxine 1.28 Free Triiodothyronine (T3) pg/mL 2.90 Medications Medications Current Medications Ceftriaxone Sodium 50 ml @ 100 mls/hr Q24H IVPB Last administered on 14:14; Admin Dose 100 MLS/HR; Start 09/08/17 at 14:00 Azithromycin 250 ml @ 250 mls/hr Q24H IVPB Last administered on 09/09/17 14: 15; Admin Dose 250 MLS/HR; Start 09/08/17 at 14:00 Sodium Chloride (NS) 1,000 ml @ 75 mls/hr [id number] IV Last administered on 05:35; Admin Dose 75 MLS/HR; Start 09/08/17 at 13:34 Ondansetron HCl (Zofran Inj) 4 mg Q6H PRN IV NAUSEA AND/OR VOMITING; Start at 14:00 Acetaminophen (Tylenol Tab) 650 mg Q6H PRN PO PAIN LEVEL 1-3 OR FEVER; Start 09/08/17 at 14:00 Ibuprofen (Motrin) 600 mg Q6H PRN PO pain; Start 09/08/17 at 14:00 Guaifenesin/ Dextromethorphan (Robitussin Dm Liquid Cup) 10 ml Q4H PO Last administered on 09/10/17 10:24; Admin Dose 10 ML; Start 09/08/17 at 14:00 Benzonatate (Tessalon) 100 mg TID PO Last administered on 09/10/17 10:24; Admin Dose 100 MG; Start 09/08/17 at 21:00 Lorazepam (Ativan) 1 mg Q4H PRN IV agitation Last administered on 09/10/17 10 :42; Admin Dose 1 MG; Start 09/09/17 at 12:00 Carvedilol (Coreg) 6.25 mg BID PO Last administered on 09/10/17 10:25; Admin Dose 6.25 MG; Start 09/09/17 at 21:00 Lisinopril (Zestril) 2.5 mg DAILY PO Last administered on 09/10/17 10:25; Admin Dose 2.5 MG; Start 09/10/17 at 09:00 Aspirin (Aspirin) 81 mg DAILY PO Last administered on 09/10/17t 10:24; Admin Dose 81 MG; Start 09/10/17 at 09:00 Mike Snell DO Sep 10, 2017 12:37
[2017-09-10] MEDS: CEFTRIAXONE 1 GM/50 ML (PMX) 50 ML IVPB SCH (14:00)
[2017-09-10] MEDS: AZITHROMYCIN 500MG/NS (PMX) 250 ML IVPB SCH (18:23)
[2017-09-10] MEDS ORDERED: FUROSEMIDE 40 MG INJ ONE (18:25)
[2017-09-10] MEDS: FUROSEMIDE 20 MG INJ IV SCH (18:31)
[2017-09-11] VITALS (13 sets, daily range): BP systolic 107–127; BP diastolic 55–76; PULSE 77–145; RESP 18–20
[2017-09-11] MEDS: GUAIFENESIN/DM 5ML CUP PO SCH ×5 (05:36→21:48)
[2017-09-11] MEDS: FUROSEMIDE 20 MG INJ IV SCH (05:36)
[2017-09-11 06:38] LABS: BASOPHILS % 0.4 % (0.0-2.0); EOSINOPHILS # 0.4 10^3/ul (0.0-0.5); EOSINOPHILS % 4.4 % (0.0-7.0); HEMATOCRIT 40.2 % (42.0-52.0); HEMOGLOBIN 13.3 g/dl (14.0-18.0); LYMPHOCYTES # 2.2 10^3/ul (0.8-2.9); MEAN CORPUSCULAR HEMOGLOBIN 30.3 pg (29.0-33.0); MEAN CORPUSCULAR HGB CONC 33.1 g/dl (32.0-37.0); MEAN CORPUSCULAR VOLUME 91.6 fl (82.0-101.0); MONOCYTE # 0.7 10^3/ul (0.3-0.9); MONOCYTES % 6.5 % (0.0-11.0); NEUTROPHIL # 6.7 10^3/ul (1.6-7.5); NEUTROPHILS % 66.2 % (39.0-77.0); PLATELET COUNT 334 10^3/UL (140-415); RED BLOOD COUNT 4.39 10^6/ul (4.70-6.10); RED CELL DISTRIBUTION WIDTH 12.6 % (11.5-14.5); WHITE BLOOD COUNT 10.1 10^3/ul (4.8-10.8)
[2017-09-11 07:37] LABS: CALCIUM 8.9 mg/dl (8.4-10.2); CREATININE 0.9 mg/dl (0.61-1.24); MAGNESIUM 1.8 mg/dl (1.7-2.5); POTASSIUM 3.5 mmol/L (3.5-5.1)
[2017-09-11] MEDS: ASPIRIN 81 MG TAB PO SCH (08:23)
[2017-09-11] MEDS: BENZONATATE 100 MG CAP PO SCH ×3 (08:23→21:49)
[2017-09-11] MEDS: LISINOPRIL 5 MG TAB PO SCH (08:24)
[2017-09-11] MEDS: ALBUTEROL/IPRATROPIUM (NEB) 3 ML AMP HHN SCH ×4 (08:27→16:06)
--- NOTE | 2017-09-11 13:06 | CONS ---
Date/Time of Note Date/Time of Note DATE: 09/11/17 TIME: 13:05 Consult Date/Type/Reason Admit Date/Time Sep 08, 2017 at 09:56 Initial Consult Date Type of Consultation: cv Subjective Cardiology follow-up progress note on behalf of Dr. Snell Subjective: Discussed with staff and rhythm strip was reviewed. Patient remains in sinus rhythm. He denies any chest pain or pressure to me. His shortness of breath has improved. He wants to go home. Objective: General: no acute distress HEENT: NC/AT. pupils are equal. round. NECK: NO JVD. no stridor. CV: RRR. systolic murmur; no gallop or rubs. PULM: no wheezing or rhonchi. GI: SOFT, NT, ND, no rebound or guarding Extremity: trace B/L LE edema. no clubbing. neuro: awake and alert, OX3. Psych: calm and pleasant rectal: deferred Objective Vital Signs Date Time Temp Pulse Resp B/P Pulse Ox O2 Delivery O2 Flow Rate FiO2 09/11/17 12:10 98.0 87 18 113/55 98 09/11/17 08:17 21 09/10/17 16:22 Room Air 09/09/17 15:54 3.0 Intake and Output 09/10/17 09/10/17 09/11/17 15:00 23:00 07:00 Intake Total 50 ml 250 ml 1000 ml Output Total 1400 ml Balance 50 ml 250 ml -400 ml Results/Medications Result Diagram: 09/11/17 0531 09/11/17 0531 Results 24 hrs Laboratory Tests Test 09/11/17 05:31 White Blood Count 10.1 Red Blood Count 4.39 L Hemoglobin 13.3 L Hematocrit 40.2 L Mean Corpuscular Volume 91.6 Mean Corpuscular Hemoglobin 30.3 Mean Corpuscular Hemoglobin Concent 33.1 Red Cell Distribution Width 12.6 Platelet Count 334 # Mean Platelet Volume 10.0 Neutrophils % 66.2 Lymphocytes % 22.0 Monocytes % 6.5 Eosinophils % 4.4 Basophils % 0.4 Nucleated Red Blood Cells % 0.0 Neutrophils # 6.7 Lymphocytes # 2.2 Monocytes # 0.7 Eosinophils # 0.4 Basophils # 0.0 Nucleated Red Blood Cells # 0.0 Sodium Level 142 Potassium Level 3.5 Chloride Level 103 Carbon Dioxide Level 30 Anion Gap 13 Blood Urea Nitrogen 13 Creatinine 0.90 Glucose Level 107 Calcium Level 8.9 Magnesium Level 1.8 Medications Current Medications Ceftriaxone Sodium (Rocephin) 50 ml @ 100 mls/hr Q24H IVPB Last administered on 09/10/17 14:00; Admin Dose 100 MLS/HR; Start 09/08/17 at 14:00 Ondansetron HCl (Zofran Inj) 4 mg Q6H PRN IV NAUSEA AND/OR VOMITING; Start at 14:00 Acetaminophen (Tylenol Tab) 650 mg Q6H PRN PO PAIN LEVEL 1-3 OR FEVER; Start 09/08/17 at 14:00 Guaifenesin/ Dextromethorphan (Robitussin Dm Liquid Cup) 10 ml Q4H PO Last administered on 09/11/17 09:03; Admin Dose 10 ML; Start 09/08/17 at 14:00 Benzonatate (Tessalon) 100 mg TID PO Last administered on 09/11/17 08:23; Admin Dose 100 MG; Start 09/08/17 at 21:00 Lorazepam (Ativan) 1 mg Q4H PRN IV agitation Last administered on 09/10/17 10 :42; Admin Dose 1 MG; Start 09/09/17 at 12:00 Carvedilol (Coreg) 6.25 mg BID PO Last administered on 09/11/17 08:23; Admin Dose 6.25 MG; Start 09/09/17 at 21:00 Aspirin (Aspirin) 81 mg DAILY PO Last administered on 09/11/17 08:23; Admin Dose 81 MG; Start 09/10/17 at 09:00 Lisinopril (Zestril) 5 mg DAILY PO Last administered on 09/11/17 08:24; Admin Dose 5 MG; Start 09/11/17 at 09:00 Azithromycin (Zithromax) 500 mg Q24H PO ; Start 09/11/17 at 14:00 Assessment/Plan Chief Complaint/Hosp Course Sepsis Acute decompensated systolic congestive heart failure Severe cardiomyopathy with ejection fraction 25% Methamphetamine use Recommendations: I will decrease the Lasix to p.o. dose only. Aldactone will be added as well. Digoxin will be added. Continue with the Coreg and DONNY inhibitor. Patient was advised to stop drugs and smoking and alcohol completely. He will need Close cardiac monitoring as an outpatient and cardiology follow-up. Thank you Problems: BELEN ALEJANDRO MD Sep 11, 2017 13:06
[2017-09-11] MEDS ORDERED: POTASSIUM CHLORIDE (SR) 20 MEQ TAB PO STA (13:25)
[2017-09-11] MEDS ORDERED: DIGOXIN 0.25 MG TAB PO SCH (13:30)
--- NOTE | 2017-09-11 13:34 | PN ---
Date/Time of Note Date/Time of Note DATE: 09/11/17 TIME: 13:31 Assessment/Plan VTE Prophylaxis VTE Prophylaxis Intervention: heparin Lines/Catheters IV [facility] Saline Lock Urinary Cath still in place: No Assessment/Plan Problems: (1) Acute combined systolic and diastolic CHF, NYHA class 3 Status: Chronic Comment: He still has a modest resting tachycardia and had a 12 beat run of nonsustained VT. I am going to titrate up on the dosage of beta-blockade. He is on an DONNY inhibitor and furosemide and Spironolactone. Please note with a potassium 3.5 with a nonsustained VT him to be given some potassium get that K above 4.0 (2) Obesity (BMI 30-39.9) Status: Chronic Comment: Noted (3) Methamphetamine abuse Status: Chronic Comment: Patient has been strongly counseled about the rationale for stopping. Given his status of his heart I have warned him that continued use will mean that his life expectancy is on the order of 6-24 months (4) Sepsis Status: Acute Comment: Clearing nicely. Probably stable for discharge in the morning Qualifiers: Sepsis type: sepsis due to unspecified organism Qualified Code: A41.9 - Sepsis, due to unspecified organism Subjective 24 Hr Interval Summary Free Text/Dictation Patient reports that he is aware of the consequences of his actions and wishes to try and stop using drugs Constitutional: no complaints Respiratory: no complaints Cardiovascular: no complaints (Denies palpitations chest pain) Gastrointestinal: no complaints Exam/Review of Systems Vital Signs Vitals Vital Signs Date Time Temp Pulse Resp B/P Pulse Ox O2 Delivery O2 Flow Rate FiO2 09/11/17 12:10 98.0 87 18 113/55 98 09/11/17 08:17 21 09/10/17 16:22 Room Air 09/09/17 15:54 3.0 Intake and Output 09/10/17 09/10/17 09/11/17 15:00 23:00 07:00 Intake Total 50 ml 250 ml 1000 ml Output Total 1400 ml Balance 50 ml 250 ml -400 ml Exam Constitutional: alert, oriented Neck: non-tender, supple Respiratory: clear to auscultation, normal air movement Cardiovascular: nl pulses, regular rate and rhythm Results Result Diagram: 09/11/17 0531 09/11/1731 Results 24 hrs Laboratory Tests Test 09/11/17 05:31 White Blood Count 10.1 Red Blood Count 4.39 L Hemoglobin 13.3 L Hematocrit 40.2 L Mean Corpuscular Volume 91.6 Mean Corpuscular Hemoglobin 30.3 Mean Corpuscular Hemoglobin Concent 33.1 Red Cell Distribution Width 12.6 Platelet Count 334 # Mean Platelet Volume 10.0 Neutrophils % 66.2 Lymphocytes % 22.0 Monocytes % 6.5 Eosinophils % 4.4 Basophils % 0.4 Nucleated Red Blood Cells % 0.0 Neutrophils # 6.7 Lymphocytes # 2.2 Monocytes # 0.7 Eosinophils # 0.4 Basophils # 0.0 Nucleated Red Blood Cells # 0.0 Sodium Level 142 Potassium Level 3.5 Chloride Level 103 Carbon Dioxide Level 30 Anion Gap 13 Blood Urea Nitrogen 13 Creatinine 0.90 Glucose Level 107 Calcium Level 8.9 Magnesium Level 1.8 Medications Medications Current Medications Ceftriaxone Sodium (Rocephin) 50 ml @ 100 mls/hr Q24H IVPB Last administered on 09/10/17 14:00; Admin Dose 100 MLS/HR; Start 09/08/17 at 14:00 Ondansetron HCl (Zofran Inj) 4 mg Q6H PRN IV NAUSEA AND/OR VOMITING; Start at 14:00 Acetaminophen (Tylenol Tab) 650 mg Q6H PRN PO PAIN LEVEL 1-3 OR FEVER; Start 09/08/17 at 14:00 Guaifenesin/ Dextromethorphan (Robitussin Dm Liquid Cup) 10 ml Q4H PO Last administered on 09/11/17 09:03; Admin Dose 10 ML; Start 09/08/17 at 14:00 Benzonatate (Tessalon) 100 mg TID PO Last administered on 09/11/17 08:23; Admin Dose 100 MG; Start 09/08/17 at 21:00 Lorazepam (Ativan) 1 mg Q4H PRN IV agitation Last administered on 09/10/17 10 :42; Admin Dose 1 MG; Start 09/09/17 at 12:00 Carvedilol (Coreg) 6.25 mg BID PO Last administered on 09/11/17 08:23; Admin Dose 6.25 MG; Start 09/09/17 at 21:00 Aspirin (Aspirin) 81 mg DAILY PO Last administered on 09/11/17 08:23; Admin Dose 81 MG; Start 09/10/17 at 09:00 Lisinopril (Zestril) 5 mg DAILY PO Last administered on 09/11/17 08:24; Admin Dose 5 MG; Start 09/11/17 at 09:00 Azithromycin (Zithromax) 500 mg Q24H PO ; Start 09/11/17 at 14:00 Spironolactone (Aldactone) 25 mg DAILY PO ; Start 09/11/17 at 13:30 Digoxin (Digoxin) 0.25 mg DAILY@13 PO ; Start 09/11/17 at 13:30 SUDHAKAR TRIANA MD Sep 11, 2017 13:34
[2017-09-11] MEDS: CEFTRIAXONE 1 GM/50 ML (PMX) 50 ML IVPB SCH (13:54)
[2017-09-11] MEDS: SPIRONOLACTONE 25 MG TAB PO SCH (13:55)
[2017-09-11] MEDS ORDERED: AZITHROMYCIN 250 MG TAB PO SCH (14:00)
[2017-09-11] MEDS: FUROSEMIDE 40 MG TAB PO SCH (17:34)
[2017-09-12] VITALS (8 sets, daily range): BP systolic 115–118; BP diastolic 58–75; PULSE 63–81; RESP 18
[2017-09-12] MEDS: ALBUTEROL/IPRATROPIUM (NEB) 3 ML AMP HHN SCH ×4 (01:00→13:00)
[2017-09-12] MEDS: GUAIFENESIN/DM 5ML CUP PO SCH ×3 (02:00→10:00)
[2017-09-12] MEDS: FUROSEMIDE 40 MG TAB PO SCH (05:46)
[2017-09-12] MEDS: SPIRONOLACTONE 25 MG TAB PO SCH (08:07)
[2017-09-12] MEDS: ASPIRIN 81 MG TAB PO SCH (08:08)
[2017-09-12] MEDS: LISINOPRIL 5 MG TAB PO SCH (08:09)
[2017-09-12] MEDS: BENZONATATE 100 MG CAP PO SCH (08:09)
--- NOTE | 2017-09-12 11:52 | DS ---
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 Mild concentric left ventricular hypertrophy. Moderate enlargement of left ventricle cavity. Severe global left ventricular systolic dysfunction. Ejection fraction is visually estimated at 25 %. Abnormal Diastolic Function. 2. Normal right ventricular size. Normal right ventricular systolic function. 3. The left atrium is normal in size. 4. The right atrium is normal in size. 5. Mild mitral valve regurgitation. 6. No significant aortic stenosis or insufficiency. 7. Estimated peak PA systolic pressure 40 mmHg. There is mild tricuspid regurgitation. 8. Normal pericardium with no significant pericardial effusion. Hx of Present Illness Hx of Present Illness This is a 32-year-old male with a medical history of current meth abuse, presented to the emergency room for 3 day duration of cough, sore throat, left chest wall pain with coughing and subjective fevers. Patient denied any palpitation, shortness of breath, nausea, vomiting, abdominal pain, upper or lower GI bleed episodes, dizziness, lightheadedness or other constitutional symptoms. In the emergency room, patient was noted with elevated WBC 27,800 with a temperature of 102.1. Chest x-ray showed prominent pulmonary vascular markings with low lung volumes. BNP 1560. Patient had EKG negative for cardiac ischemia with a negative troponin. Patient was given IV ceftriaxone, azithromycin, Toradol and IV fluids in the emergency room and was admitted. ROS A 12 point review of system was assessed and is negative other than what is mentioned in HPI. Hospital Course 32-year-old male admitted to the hospital with CHF. He was treated aggressively with heart failure medications and diuresis. He is improved nicely. He has had extensive discussions and counseling regarding his chemical dependency which is led to this issue. He reports he is now prepared to make a concerted effort and feels that his survival instinct is now operating. He is being discharged home in improved condition. He has fair rehab potential which will be based upon whether or not he can remain clean and sober. Please note aids social worker has met with him and has offered him referral to various rehabilitation Home Meds No Active Prescriptions or Reported Meds Follow-up Plan Cardiology in 2 weeks Primary Care Provider Not On Staff Doctor Time spent on discharge: > 30 minutes SUDHAKAR TRIANA MD Sep 12, 2017 11:52
--- NOTE | 2017-09-12 11:53 | PDOCDIS ---
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
[2017-09-12] MEDS ORDERED: ASPI81TA3 PO (11:57)
[2017-09-12] MEDS ORDERED: SPIR25TA PO (11:57)
[2017-09-12] MEDS ORDERED: LISI-313 PO (11:57)
[2017-09-12] MEDS ORDERED: FURO20TA3 PO (11:57)
[2017-09-12] MEDS ORDERED: CARV6.2579 PO (11:57)
[2017-09-12] MEDS ORDERED: DIGO250T PO (11:57)
== END 2017-09-12 13:05 | disposition home or self-care (01) | DRG 871 ==
LOC: E/R 06:25 → MS3 09:56 → MS4 09-10 18:39
PROVIDERS: ADMIT Family Medicine; ATTEND Family Medicine
DX: A41.9 Sepsis, unspecified organism (principal); J18.9 Pneumonia, unspecified organism; I50.23 Acute on chronic systolic (congestive) heart failure; I42.9 Cardiomyopathy, unspecified; F15.10 Other stimulant abuse, uncomplicated; E66.9 Obesity, unspecified; Z68.37 Body mass index [BMI] 37.0-37.9, adult
CPT/HCPCS: 36415; 71010; 80048; 80053; 80061; 82550; 82553; 83036; 83605; 83690; 83735; 83880; 84100; 84439; 84443; 84481; 84484; 85025; 87040; 87400; 93005; 93306; 94640; 94664; 96361; 96365; 96367; 96375; J1940; J0456; J0696; J1885; J2060; J3370; J3475; J7030

== ENCOUNTER 2018-07-22 09:17 | Emergency (ER) | END 2018-07-22 10:24 | disposition home or self-care (01) ==